=== PATIENT | female | born 2000 | race African-American/Black ===

== ENCOUNTER 2019-04-22 14:46 | Emergency (ER) | payer MEDICAID ==
[~2019-04-22] VITALS: Ht 157.5 cm; Wt 59.0 kg
[2019-04-22 14:59] VITALS: BP 106/66
--- NOTE | 2019-04-22 15:02 | NUR ---
ED Nurse Note: Patient walked in to ER c/o nausea x 3 month. Stated " I am on my period right now, I am not ". Patient presented calm , cooperative, AAO x4, VSS at this time, skin is intact, warm to touch.
--- NOTE | 2019-04-22 15:45 | Emergency Room Report ---
History of Present Illness General Chief Complaint: Nausea Source: Patient Present Illness HPI 19-year-old female presents to the emergency department complaining of 7 out of 10 severity left-sided adnexal pain and tenderness x2 days with 2 episodes of vomiting. Patient also reports that she has been experiencing severe nausea that is been constant x2 to 3 months. Patient also reports having night sweats and states that she is lost approximately 50 pounds unintentionally since last April. She denies personal or familial history of cancer. She states she notices the nausea most at nighttime. She denies abdominal pain or tenderness. She denies vaginal discharge, spotting/irregular periods, suspicion of , constipation, or diarrhea. Patient reports that she is sexually active and she is not taking control however she diligently tracks her menstrual cycle. Denies cough, halitosis, fevers or chills. She denies blood in the vomit. denies black stools. She denies hx of ovarian cysts or torsion. Pt. reports acute on set of adnexal pain with vomiting. She denies dysuria, hematuria or urinary frequency. Allergies: Coded Allergies: No Known Allergies (Unverified , 04/22/19) Patient History Past Medical History: see triage record Past Surgical History: none Pertinent Family History: none Last Menstrual Period: CURRENTLY ON HER PERIOD Now: No Reviewed Nursing Documentation: PMH: Agreed; PSxH: Agreed Nursing Documentation-PMH Past Medical History: No Stated History Review of Systems All Other Systems: negative except mentioned in HPI Physical Exam Vital Signs Date Time Temp Pulse Resp B/P (MAP) Pulse Ox O2 Delivery O2 Flow Rate FiO2 04/22/19 14:51 97.9 77 15 106/66 (79) 99 Room Air Sp02 EP Interpretation: reviewed, normal General Appearance: no apparent distress, alert, GCS 15, non-toxic Head: normocephalic, atraumatic Eyes: bilateral eye normal inspection, bilateral eye PERRL ENT: hearing grossly normal, normal voice Neck: full range of motion Respiratory: lungs clear, normal breath sounds, speaking full sentences Cardiovascular #1: regular rate, rhythm Gastrointestinal: normal bowel sounds, non tender, soft, no peritonitis, non- distended, no guarding, no rebound Rectal: deferred Genitourinary: normal inspection, no CVA tenderness, other - Left adnexal TTP Musculoskeletal: back normal, normal range of motion, gait/station normal, non- tender Neurologic: alert, motor strength/tone normal, oriented x3, sensory intact, responsive, speech normal Psychiatric: judgement/insight normal Lymphatic: no adenopathy Medical Decision Making PA Attestation Dr. Cobos is my supervising Physician whom patient management has been discussed with. Diagnostic Impression: Primary Impression: Adnexal tenderness, left Additional Impression: Nausea & vomiting Qualified Codes: R11.2 - Nausea with vomiting, unspecified ER Course 19-year-old female presents to the emergency department complaining of 7 out of 10 severity left-sided adnexal pain and tenderness x2 days with 2 episodes of vomiting. Patient also reports that she has been experiencing severe nausea that is been constant x2 to 3 months. Patient also reports having night sweats and states that she is lost approximately 50 pounds unintentionally since last April. She denies personal or familial history of cancer. She states she notices the nausea most at nighttime. She denies abdominal pain or tenderness. She denies vaginal discharge, spotting/irregular periods, suspicion of , constipation, or diarrhea. Patient reports that she is sexually active and she is not taking control however she diligently tracks her menstrual cycle. Denies cough, halitosis, fevers or chills. She denies blood in the vomit. denies black stools. She denies hx of ovarian cysts or torsion. Pt. reports acute on set of adnexal pain with vomiting. She denies dysuria, hematuria or urinary frequency. Ddx considered but are not limited to Diverticulitis, acute appy, ovarian torsion, ectopic , PID tubo-ovarian abscess, ovarian cyst. Vital signs: are WNL, pt. is afebrile H&PE are most consistent with possible ovarian cyst, however due to presentation will r/o torsion, ectopic, and stone. ORDERS: -CBC, CMP, LIPASE: All WNL -UA: few rbc's , the rest is unremarkable no inflammatory marker elevation -URINE HCG: negative -Pelvic US Complete: Negative pelvic ultrasound. No acute findings--per official radiology report- Please see report for specific details. ED INTERVENTIONS: - 4mg Zofran PO I discussed with this patient the importance of following up with her doctor as her constitutional symptoms such as night sweats and significant amount of weight loss could be representing an underlying oncological pathology. And she needs to be further evaluated for the symptoms. -I do not identify an emergent condition at this time. With current presentation , pt. is stable for close outpatient follow up and conservative treatment. D/ w pt. to return promptly to ED with worsening or new symptoms.- Pt. verbalizes' understanding and agreement with proposed treatment plan.proposed treatment plan. DISCHARGE: At this time pt. is stable for d/c to home. Will provide printed patient care instructions, and any necessary prescriptions. Care plan and follow up instructions have been discussed with the patient prior to discharge. Labs Test 04/22/19 15:08 04/22/19 16:01 Urine Color Yellow Urine Appearance Clear Urine pH 7 (4.5-8.0) Urine Specific Decker 1.010 (1.005-1.035) Urine Protein 1+ (NEGATIVE) Urine Glucose (UA) Negative (NEGATIVE) Urine Ketones 1+ (NEGATIVE) Urine Blood 4+ (NEGATIVE) Urine Nitrite Negative (NEGATIVE) Urine Bilirubin Negative (NEGATIVE) Urine Urobilinogen 4 MG/DL (0.0-1.0) Urine Leukocyte Esterase Negative (NEGATIVE) Urine RBC 2-4 /HPF (0 - 2) Urine WBC 0-2 /HPF (0 - 2) Urine Squamous Epithelial Cells Few /LPF (NONE/OCC) Urine Bacteria Few /HPF (NONE) Urine HCG, Qualitative Negative (NEGATIVE) White Blood Count 5.4 K/UL (4.8-10.8) Red Blood Count 4.01 M/UL (4.20-5.40) Hemoglobin 12.5 G/DL (12.0-16.0) Hematocrit 40.3 % (37.0-47.0) Mean Corpuscular Volume 100 FL (80-99) Mean Corpuscular Hemoglobin 31.2 PG (27.0-31.0) Mean Corpuscular Hemoglobin Concent 31.1 G/DL (32.0-36.0) Red Cell Distribution Width 11.5 % (11.6-14.8) Platelet Count 224 K/UL (150-450) Mean Platelet Volume 9.3 FL (6.5-10.1) Neutrophils (%) (Auto) 65.6 % (45.0-75.0) Lymphocytes (%) (Auto) 25.2 % (20.0-45.0) Monocytes (%) (Auto) 7.5 % (1.0-10.0) Eosinophils (%) (Auto) 0.7 % (0.0-3.0) Basophils (%) (Auto) 1.0 % (0.0-2.0) Sodium Level 141 MMOL/L (136-145) Potassium Level 4.3 MMOL/L (3.5-5.1) Chloride Level 105 MMOL/L (98-107) Carbon Dioxide Level 31 MMOL/L (21-32) Anion Gap 5 mmol/L (5-15) Blood Urea Nitrogen 8 mg/dL (7-18) Creatinine 0.7 MG/DL (0.55-1.30) Estimat Glomerular Filtration Rate > 60 mL/min (>60) Glucose Level 77 MG/DL (74-106) Calcium Level 9.5 MG/DL (8.5-10.1) Total Bilirubin 0.6 MG/DL (0.2-1.0) Aspartate Amino Transf (AST/SGOT) 17 U/L (15-37) Alanine Aminotransferase (ALT/SGPT) 25 U/L (12-78) Alkaline Phosphatase 55 U/L (46-116) Total Protein 7.7 G/DL (6.4-8.2) Albumin 4.0 G/DL (3.4-5.0) Globulin 3.7 g/dL Albumin/Globulin Ratio 1.1 (1.0-2.7) Lipase 200 U/L (73-393) CT/MRI/US Diagnostic Results CT/MRI/US Diagnostic Results : Imaging Test Ordered: Pelvic US Impression " Uterus and endometrium is unremarkable. Ovaries are normal in size with normal vascularity. No torsion. No free fluid. Incidental note of prominent left periuterine vessels, which can be seen with pelvic congestion syndrome." Per official radiology report- Please see report for specific details. Last Vital Signs Date Time Temp Pulse Resp B/P (MAP) Pulse Ox O2 Delivery O2 Flow Rate FiO2 04/22/19 14:59 97.9 15 106/66 99 Room Air 04/22/19 14:51 77 Disposition: HOME, SELF-CARE Condition: Stable Scripts Ondansetron Odt* (ZOFRAN ODT*) 4 Mg Tab.rapdis 4 MG BC EVERY 6 HOURS PRN for Nausea & Vomiting, #10 TAB 0 Refills Prov: Laney Carter 04/22/19 Referrals: NON PHYSICIAN (PCP) Zhang Crockett [facility]. [facility] Patient Instructions: Medical Screening Exam, Nausea, Adult Additional Instructions: Take medications as directed. Follow up with a Primary Care Provider in 3-5 days, even if your symptoms have resolved. You need to be further examined for your unintentional 50 pound weight loss and night sweats. This is concerning as these symptoms although vague can demonstrate an underlying cancerous condition that needs to be further looked into. --Please review list of primary care clinics, if you do not already have a primary care provider Return sooner to ED if new symptoms occur, or current symptoms become worse. - Please note that this Emergency Department Report was dictated using [employer] analyst technology software, occasionally this can lead to erroneous entry secondary to interpretation by the dictation equipment. Laney Carter Apr 22, 2019 15:44
[2019-04-22 16:06] LABS: APPEARANCE,URINE CLEAR; BILIRUBIN, URINE NEGATIVE (NEGATIVE); GLUCOSE, URINE (UA) NEGATIVE (NEGATIVE); KETONES,URINE 1+ (NEGATIVE); LEUKOCYTE ESTERASE ,URINE NEGATIVE (NEGATIVE); NITRITE,URINE NEGATIVE (NEGATIVE); PH,URINE 7 (4.5-8.0); PROTEIN,URINE 1+ (NEGATIVE); UROBILINOGEN,URINE 4 MG/DL (0.0-1.0)
[2019-04-22 16:12] LABS: COLOR,URINE YELLOW
[2019-04-22 16:14] LABS: EOSINOPHILS % (AUTO) 0.7 % (0.0-3.0); HEMATOCRIT 40.3 % (37.0-47.0); HEMOGLOBIN 12.5 G/DL (12.0-16.0); LYMPHOCYTES % (AUTO) 25.2 % (20.0-45.0); MEAN CORPUSCULAR VOLUME 100 FL (80-99); MONOCYTES % (AUTO) 7.5 % (1.0-10.0); NEUTROPHILS % (AUTO) 65.6 % (45.0-75.0); PLATELET COUNT 224 K/UL (150-450); RED BLOOD COUNT 4.01 M/UL (4.20-5.40); RED CELL DISTRIBUTION WIDTH 11.5 % (11.6-14.8); WHITE BLOOD COUNT 5.4 K/UL (4.8-10.8)
[2019-04-22 16:25] LABS: ANION GAP 5 mmol/L (5-15); BLOOD UREA NITROGEN 8 mg/dL (7-18); CALCIUM 9.5 MG/DL (8.5-10.1); CARBON DIOXIDE 31 MMOL/L (21-32); CHLORIDE 105 MMOL/L (98-107); CREATININE 0.7 MG/DL (0.55-1.30); POTASSIUM 4.3 MMOL/L (3.5-5.1); SODIUM 141 MMOL/L (136-145)
[2019-04-22 16:29] LABS: ALANINE AMINOTRANSFERASE 25 U/L (12-78); ALBUMIN/GLOBULIN RATIO 1.1 (1.0-2.7); ALKALINE PHOSPHATASE 55 U/L (46-116); ASPARTATE AMINO TRANSFERASE 17 U/L (15-37); BILIRUBIN,TOTAL 0.6 MG/DL (0.2-1.0)
--- NOTE | 2019-04-22 16:59 | NUR ---
ED Nurse Note: Patient went for US
--- NOTE | 2019-04-22 17:49 | NUR ---
ED Nurse Note: Patient is back. VSS at this time, no disstress noted
--- NOTE | 2019-04-22 20:14 | Diagnostic Imaging Report ---
Indication:Lower abdominal and pelvic pain Technique: Grayscale and duplex Doppler imaging of the pelvis performed utilizing a transabdominal and endovaginal scan. Comparison: None Findings: The size, contour, and configuration of the uterus is within normal limits. The endometrium is uniformly echogenic and normal in thickness. Endometrium 3.6 mm. The ovaries appear normal bilaterally with good dopplerable blood flow. There is no significant free fluid identified. IMPRESSION: Negative pelvic ultrasound. No acute findings.
[2019-04-22] MEDS ORDERED: ONDANSETRON ODT4 MG BC (20:34)
[2019-04-22 20:57] VITALS: BP 106/66
--- NOTE | 2019-04-22 20:57 | NUR ---
ER DISCHARGE NOTE: Patient is cleared to be discharged per ERMD, pt is aox4, on room air, with stable vital signs. pt was given dc and prescription instructions, pt was able to verbalize understanding, pt id band and iv site removed without complications. pt is able to ambulate with steady gait. pt took all belongings.
== END 2019-04-22 20:58 | disposition home or self-care (01) ==
LOC: EMR 15:35
DX: R11.2 Nausea with vomiting, unspecified (principal); R10.2 Pelvic and perineal pain
CPT/HCPCS: 36415; 76830; 76856; 80053; 81003; 81025; 83690; 85025; Z7502; 99284